=== PATIENT | male | born 1965 | race African-American/Black ===

== ENCOUNTER → 2018-03-24 | Outpatient (CLI) | payer OTHER ==
[2015-07-12 13:00] VITALS: BP 133/79
[~2018-03-24] MED LIST: METH-37 PO; TRAM-48 PO
--- NOTE | 2018-03-24 09:42 | RAD ---
RENAL COMPLETE BILATERAL: 03/24/2018 7:06 AM Indication: 52 years old Male. MICROSCOPIC HEMATURIA. Comparison: None. FINDINGS: Sonographic evaluation of kidneys is performed with grayscale and color Doppler. Right kidney: Size: 12.0 x 4.7 x 5.2 cm. Collecting System: No hydronephrosis. No renal calculi detected. Parenchyma: Normal echotexture and morphology. No focal contour deforming renal mass. Left kidney: Size: 9.8 x 5.8 x 4.7 cm. Collecting System: No hydronephrosis. No renal calculi detected. Parenchyma: Normal echotexture and morphology. No focal contour deforming renal mass. Urinary bladder: Unremarkable. Prevoid bladder volume 103.2 cc without significant postvoid residual. IMPRESSION: No sonographic evidence for obstructive uropathy. Electronically signed by: Naz Horne MD (03/24/2018 9:38 AM) [id number]
== END | disposition home or self-care (01) ==
LOC: US 06:34
PROVIDERS: ATTEND Family Medicine
DX: R31.29 Other microscopic hematuria (principal)
CPT/HCPCS: 76770